=== PATIENT | male | born 1955 | race Hispanic/Latino ===

== ENCOUNTER 2017-10-01 10:39 | Day surgery (SDC) | payer MEDICAID ==
[2017-09-25 12:17] VITALS: BMI 34.4
[2017-10-01] MEDS ORDERED: Propofol 10 mg/ml Inj (20 ML) ONE (13:45)
[2017-10-01] MEDS ORDERED: Midazolam 2 MG/2 ML VIAL ONE (13:45)
[2017-10-01] MEDS ORDERED: Ciprofloxacin 400mg/200ml D5W 400 MG/200 ML BAG IVPB ONE (13:47)
[2017-10-01] MEDS ORDERED: HYDROmorphone 0.5 mg/0.5 ml ISec IVP PRN (14:12)
[2017-10-01 15:47] VITALS: RESP 18
[2017-10-01 16:06] VITALS: BP 114/66; PULSE 64; TEMP 97.8; O2SAT 98
--- NOTE | 2017-10-02 21:52 | OP ---
Copied To: Kenia Caballero MD Attending MD: Kenia Caballero MD PROCEDURE DATE: 10/01/2017 PREOPERATIVE DIAGNOSIS: Prostatic hypertrophy and slow stream with dysuria. POSTOPERATIVE DIAGNOSIS: Prostatic hypertrophy causing obstruction. ANESTHESIA: Sedation. BLOOD LOSS: None. DESCRIPTION OF PROCEDURE: While the patient in lithotomy position and after starting sedation, genitalia prepped and draped in sterile fashion. A #20 scope inserted. The urethra normal, showed some narrow and bulbous urethra which dilated. The bladder itself trabeculated with saccule and no tumor seen. Inspecting the dome, lateral wall, and the floor, no evidence of tumor or stone. Large median lobe with bilateral lobe enlargement of around 4.5 cm causing obstruction of the prostatic urethra. While the scope in the verumontanum, the lobes were kissing and causing obstruction. After emptying the bladder, the scope removed, urethra dilated, and the patient needed TURP, transurethral resection of the prostate. I will discuss that with the patient. The patient to transfer to the recovery room in stable condition. Kenia Caballero MD
== END 2017-10-01 16:00 | disposition home or self-care (01) ==
LOC: C.SDS 10:39
PROVIDERS: ATTEND Specialist
DX: N40.1 Benign prostatic hyperplasia with lower urinary tract symptoms (principal); R31.9 Hematuria, unspecified; R30.0 Dysuria; N35.8 Other urethral stricture; R39.198 Other difficulties with micturition
CPT/HCPCS: 52281; 82948; J0744

== ENCOUNTER 2017-12-14 08:15 | Inpatient (IN) | payer MEDICAID ==
[2017-09-25 12:17] VITALS: BMI 34.4
[~2017-12-14 08:15] MED LIST: Ciprofloxacin 400mg/200ml D5W 400 MG/200 ML BAG IVPB ONE; Gentamicin 160 MG in Sodium Chloride 0.9% 100 ML IVPB ONE; Lidocaine 2% Jelly (Uro-Jet) ONE
[2017-12-14] MEDS ORDERED: Propofol 10 mg/ml Inj (20 ML) ONE (10:13)
[2017-12-14] MEDS ORDERED: ePHEDrine 50 mg/ml Inj ONE (11:18)
[2017-12-14] MEDS ORDERED: Oxycodone/Acetaminophen 5/325 mg Tab PO PRN (11:24)
[2017-12-14] MEDS ORDERED: Lactated Ringer's 1,000 ML IV SCH (11:30)
[2017-12-14] MEDS ORDERED: Lactated Ringer's 1,000 ML IV ONE (17:00)
--- NOTE | 2017-12-14 17:57 | CP.PCM.CON ---
History of Present Illness - History of Present Illness History of Present Illness: 62 year old fabi with Hx of HTN, Hi lipids pci 2001 in [place], now sob, EST Echo at no ischemia EF 65% 07/20 and reviewd labs EKG 09/19 no MN. He denies dyspnea, dizziness, palpitations, syncope, edema, claudication, fatigue, ortho pnea, PND or chest pain.had successful TUR uneventful Review of Systems - Review of Systems Systems not reviewed;Unavailable: Acuity of Condition - Constitutional Constitutional: Anorexia, Weakness - EENT Eyes: absent: Discharge Ears: absent: Ear Discharge, Dizziness Nose/Mouth/Throat: absent: Epistaxis - Cardiovascular Cardiovascular: absent: Acrocyanosis, Chest Pain, Diaphoresis, Palpitations, Syncope - Respiratory Respiratory: absent: Cough, Dyspnea, Hemoptysis - Gastrointestinal Gastrointestinal: absent: Abdominal Pain, Hematochezia, Vomiting - Genitourinary Genitourinary: Change in Urinary Stream Past Patient History - Past Medical History & Family History Past Medical History?: Yes - Past Social History Smoking Status: Current Some Days Smoker - CARDIAC Hx Cardiac Disorders: Yes (CAD STENTS) Hx Hypercholesterolemia: Yes Hx Hypertension: Yes Other/Comment: CARDIAC STENT X1 - PULMONARY Hx Respiratory Disorders: No - NEUROLOGICAL Hx Neurological Disorder: No - HEENT Hx HEENT Problems: No - RENAL Hx Chronic Kidney Disease: No Hx Kidney Stones: Yes (PASSED ON OWN) - ENDOCRINE/METABOLIC Hx Endocrine Disorders: Yes Hx Diabetes Mellitus Type 2: Yes - HEMATOLOGICAL/ONCOLOGICAL Hx Blood Disorders: No - INTEGUMENTARY Hx Dermatological Problems: No - MUSCULOSKELETAL/RHEUMATOLOGICAL Hx Musculoskeletal Disorders: No - GASTROINTESTINAL Hx Gastrointestinal Disorders: No - GENITOURINARY/GYNECOLOGICAL Hx Genitourinary Disorders: Yes Hx Hematuria: Yes Hx Prostate Problems: Yes - PSYCHIATRIC Hx Psychophysiologic Disorder: No - SURGICAL HISTORY Hx Surgeries: Yes Hx Cardiac Catheterization: Yes Hx Coronary Stent: Yes Other/Comment: tonsillectomy - ANESTHESIA Hx Anesthesia: Yes Hx Anesthesia Reactions: No Hx Malignant Hyperthermia: No Has any member of the family had a problem w/ anesthesia?: No Meds Allergies/Adverse Reactions: Allergies Allergy/AdvReac Type Severity Reaction Status Date / Time No Known Allergies Allergy Verified 10/01/17 10:57 - Medications Medications: Current Medications Ciprofloxacin (Cipro) 500 mg PO BID ONE; Protocol Stop: 12/14/17 18:01 Lactated Ringer's (Lactated Ringer's) 1,000 mls @ 100 mls/hr IV .Q10H STEVE Lactated Ringer's (Lactated Ringer's) 1,000 mls @ 100 mls/hr IV .Q10H STEVE Oxycodone/Acetaminophen (Percocet 5/325 Mg Tab) 1 tab PO Q4H PRN PRN Reason: Pain, moderate (4-7) Stop: 12/17/17 11:25 Tamsulosin HCl (Flomax) 0.4 mg PO BID [facility] Physical Exam - Constitutional Appears: Non-toxic - Head Exam Head Exam: ATRAUMATIC - Eye Exam Eye Exam: EOMI - ENT Exam ENT Exam: Mucous Membranes Moist - Neck Exam Neck exam: Negative for: Lymphadenopathy, Thyromegaly - Respiratory Exam Respiratory Exam: Clear to Auscultation Bilateral. absent: Rales - Cardiovascular Exam Cardiovascular Exam: REGULAR RHYTHM, Systolic Murmur - GI/Abdominal Exam GI & Abdominal Exam: Normal Bowel Sounds. absent: Organomegaly - Rectal Exam Rectal Exam: Deferred - Extremities Exam Extremities exam: Positive for: normal capillary refill. Negative for: calf tenderness - Neurological Exam Neurological exam: Alert, Oriented x3 - Psychiatric Exam Psychiatric exam: Normal Mood - Skin Skin Exam: Dry Results - Vital Signs Recent Vital Signs: Last Vital Signs Temp 97.0 F L 12/14/17 11:18 Pulse 69 12/14/17 14:00 Resp 16 12/14/17 14:00 BP 107/61 12/14/17 14:00 Pulse Ox 97 12/14/17 14:00 - Labs Labs: Laboratory Results - last 24 hr 12/14/17 12/14/17 08:56 13:14 POC Glucose (mg/dL) 110 102 Assessment & Plan (1) BPH with obstruction/lower urinary tract symptoms Status: Acute Comment: doing well post TUR (2) Presence of stent in coronary artery in patient with coronary artery disease Status: Chronic (3) Hypertension Status: Chronic (4) Mixed hypercholesterolemia and hypertriglyceridemia Status: Chronic
[2017-12-14] MEDS: (Novolin R) Insulin Human Regular 100 units/ml vial SC SCH (21:12)
[2017-12-15] MEDS: Lactated Ringer's 1,000 ML IV SCH ×2 (03:43→07:52)
[2017-12-15 07:44] VITALS: PULSE 68; RESP 20
[2017-12-15] MEDS: (Novolin R) Insulin Human Regular 100 units/ml vial SC SCH ×2 (07:52→12:47)
[2017-12-15] MEDS ORDERED: Bisacodyl 5mg EC Tab PO ONE (09:00)
[2017-12-15] MEDS ORDERED: Metoprolol Succinate 50 mg XL Tab PO SCH (10:00)
[2017-12-15 16:38] VITALS: BP 139/88; TEMP 97.8; O2SAT 96
[2017-12-16] MEDS ORDERED: Influenza Vaccine 60 MCG/0.5 ML SYR (3 yr & up) IM ONE (10:00)
--- NOTE | 2017-12-17 06:21 | OP ---
PROCEDURE DATE: 12/14/2017 PREOPERATIVE DIAGNOSIS: Prostatic hypertrophy with obstruction. POSTOPERATIVE DIAGNOSIS: Heavily trabeculated bladder with prostatic hypertrophy. PROCEDURES: Cystoscopy, transurethral resection of the prostate. DESCRIPTION OF PROCEDURE: While the patient in lithotomy position and the patient given gentamicin and Cipro, genitalia were prepped and draped in a sterile fashion. Cysto revealed the urethra normal down to the prostatic urethra. Prostatic urethra occluded with bilateral lobe enlargements and enlargement of the median lobe. Heavily trabeculated bladder over 3+. Dome and lateral wall of the bladder was normal. After filling the bladder, the scope was removed. Urethra was dilated with curved metal sound. A resectoscope sheath was inserted. The bladder neck was resected totally first. After that, deep groove at 11 o'clock and deep groove at 1 o'clock. All the lateral tissue resected. All tissue on 12 o'clock resected. All tissues irrigated out. All bleeders coagulated. At the end of the resection, there was no obstruction between the veru and the bladder neck. The patient tolerated the procedure well. After checking the bladder for any free pieces and controlled the bleeding, the scope was removed. Putting pressure on the suprapubic area showed good stream. The patient tolerated the procedure well. A #22 three-way Goznalez was inserted. Irrigation was clear. Balloon inflated to 30 mL. The patient was transferred to the recovery room in stable condition. Kenia Caballero MD
== END 2017-12-15 17:04 | disposition home or self-care (01) | DRG 337 ==
LOC: C.9S 08:15 → C.5S 18:12
PROVIDERS: ADMIT Specialist; ATTEND Specialist
PROC: 0VT08ZZ Resection of Prostate, Via Natural or Artificial Opening Endoscopic (ICD-10-PCS; principal; 2017-12-14 10:00)
DX: C61 Malignant neoplasm of prostate (principal); N40.1 Benign prostatic hyperplasia with lower urinary tract symptoms; N13.8 Other obstructive and reflux uropathy; N32.89 Other specified disorders of bladder; E11.9 Type 2 diabetes mellitus without complications; I10 Essential (primary) hypertension; I25.10 Atherosclerotic heart disease of native coronary artery without angina pectoris; E78.00 Pure hypercholesterolemia, unspecified; F17.210 Nicotine dependence, cigarettes, uncomplicated; Z87.442 Personal history of urinary calculi; Z95.5 Presence of coronary angioplasty implant and graft